=== PATIENT | male | born 1960 | race Caucasian/White ===

== ENCOUNTER → 2024-11-15 | Outpatient (CLI) | payer BC, SELFPAY ==
--- NOTE | 2024-11-15 10:37 | RAD_ITS ---
PROCEDURE: WRIST MIN 3 VIEWS REASON FOR EXAM: Pain. TECHNIQUE: Three-view right wrist and three-view left wrist series (combined dictation). COMPARISON: None. RAD/Wrist min 3 Views IMPRESSION: Right wrist: Extensive chondrocalcinosis is seen in ulnar and radial aspects of the right wr ist. Marked scapholunate widening is likely due to scapholunate ligament disruption. No significant ulnar variance is noted. Moderate degenerative changes are seen of the scaphoid trapezial trapezoid join t, with associated marked joint space narrowing. No fracture site is seen. Left wrist: 2 superficial metallic densities are seen overlying the left 1st metacarpal bon e Mild negative ulnar variance is noted. Mild degenerative changes are seen of t he wrist, most apparent at scaphoid trapezial trapezoid joint. Mild degenerative changes are also seen throughout the visualized 1st ray. Deformity of the proximal shaft of the 5th metacarpal is noted, likely due to r emote healed injury. No fracture site is seen. Reading Location: [id number]
--- NOTE | 2024-11-15 10:37 | RAD_ITS ---
PROCEDURE: WRIST MIN 3 VIEWS REASON FOR EXAM: Pain. TECHNIQUE: Three-view right wrist and three-view left wrist series (combined dictation). COMPARISON: None. RAD/Wrist min 3 Views IMPRESSION: Right wrist: Extensive chondrocalcinosis is seen in ulnar and radial aspects of the right wr ist. Marked scapholunate widening is likely due to scapholunate ligament disruption. No significant ulnar variance is noted. Moderate degenerative changes are seen of the scaphoid trapezial trapezoid join t, with associated marked joint space narrowing. No fracture site is seen. Left wrist: 2 superficial metallic densities are seen overlying the left 1st metacarpal bon e Mild negative ulnar variance is noted. Mild degenerative changes are seen of t he wrist, most apparent at scaphoid trapezial trapezoid joint. Mild degenerative changes are also seen throughout the visualized 1st ray. Deformity of the proximal shaft of the 5th metacarpal is noted, likely due to r emote healed injury. No fracture site is seen. Reading Location: [id number]
[2024-11-15 12:57] LABS: Absolute Lymphocyte Count 1.88 X10^3/uL (0.83-4.51); Absolute Neutrophil Count 4.2 X10^3/uL (2.0-7.7); Basophil# 0.02 X10^3/uL; Basophil% 0.3 % (0-1); Eosinophil# 0.03 X10^3/uL; Eosinophils% 0.5 % (0-5); Hemoglobin 14.7 g/dL (13.0-16.5); Lymphocyte # 1.88 X10^3/ul (0.83-4.51); Lymphocyte % 28.7 % (19-41); Mean Corp Hgb Conc 31.3 g/dL (32-36); Mean Corpuscular Hgb 29.1 pg (27.0-32.0); Mean Corpuscular Volume 92.9 fL (80-94); Mean Platelet Vol. 10.5 fl (6.2-12.0); Monocyte# 0.43 X10^3/uL; Monocyte% 6.6 % (0-10); NRBC Flagged by Analyzer 0 % (0-5); Neutrophil # 4.19 X10^3/uL (2.7-7.7); Neutrophil % 63.7 % (47-70); Platelet Count 234 K/mm3 (150-450); RBC Distribution Width CV 13.8 % (11.6-14.6); RBC Distribution Width SD 47.3 fl (35.1-43.9); Red Blood Count 5.06 M/mm3 (4.6-6.2); White Blood Count 6.6 K/mm3 (4.4-11.0)
[2024-11-15 13:45] LABS: ALB/GLOB Ratio 0.9 RATIO (0.9-2.4); AST(SGOT) 17 U/L (15-37); Alanine Aminotransfer ALT/SGPT 30 U/L (16-61); Albumin, Serum 3.4 g/dL (3.2-5.0); Alkaline Phosphatase 68 U/L (45-117); Anion Gap 8 (5-15); BUN 17 mg/dL (7-18); BUN/Creat Ratio 18.7 RATIO (10-20); CPK Total, Creatine Kinase 70 U/L (39-308); Calcium,Total 9.4 mg/dL (8.5-10.1); Chloride 104 mmol/L (98-107); Creatinine, Serum 0.91 mg/dL (0.70-1.30); EST Glomerular Filtration Rate 90 mL/min (>60); Est Glom Filt Rate - Afr Amer 109 mL/min (>60); Globulin 3.9 g/dL (2.2-4.2); Glucose 105 mg/dL (74-106); Protein, Total 7.3 g/dL (6.4-8.2); Rheumatoid Factor < 10.0 IU/mL (<15); Sodium Level 138 mmol/L (136-145)
[2024-11-15 14:01] LABS: Hepatitis B Surface Antibody Non-Reactive; Hepatitis B Surface Antigen Non-Reactive (Nonreactive); Hepatitis C Antibody Non-Reactive (Nonreactive)
[2024-11-16 11:08] LABS: ANTINUCLEAR ANTIBODIES DIRECT Negative (Negative)
[2024-11-16 13:07] LABS: CCP IgG Antibodies 2 units (0-19)
== END | disposition home or self-care (01) ==
LOC: MTLAB 10:35
PROVIDERS: PCP Nurse Practitioner Primary Care; Referring Provider Internal Medicine Rheumatology; Visit Provider Internal Medicine Rheumatology
DX: M06.4 Inflammatory polyarthropathy (principal); M17.0 Bilateral primary osteoarthritis of knee; M25.531 Pain in right wrist; M25.532 Pain in left wrist
CPT/HCPCS: 36415; 73110; 80053; 82085; 82550; 85025; 86038; 86200; 86431; 86706; 86803; 87340

== ENCOUNTER → 2024-12-18 | Outpatient (CLI) | payer BC, SELFPAY ==
--- NOTE | 2024-12-18 19:08 | MRI_ITS ---
PROCEDURE: MRI cervical spine without IV contrast REASON FOR EXAM: PAIN TECHNIQUE: Cervical spine MRI without intravenous gadolinium-based contrast. COMPARISON: None. FINDINGS: Vertebral body heights are within normal limits. Negative for fracture or marrow replacement. Mild cervical kyphosis. Spinal cord is of normal caliber, contour and signal intensity. No paraspinal mass. C2-3: No focal disc abnormality, spinal stenosis or foraminal narrowing. C3-4: Posterior disc osteophyte complex. Bilateral uncovertebral arthrosis, greater on the left. No significant spinal stenosis. Moderate/severe left and mild right foraminal narrowing. C4-5: Posterior disc osteophyte complex abutting the ventral cord. Bilateral uncovertebral arthrosis. Mild spinal stenosis. Mgde-[id number] bilateral foraminal narrowing, greater on the left. C5-6: Posterior disc osteophyte complex. Bilateral uncovertebral arthrosis. Mild spinal stenosis. Moderate/severe left foraminal narrowing. C6-7: Posterior disc osteophyte complex. Bilateral uncovertebral arthrosis. No significant spinal stenosis or foraminal narrowing. C7-T1: No focal disc abnormality, spinal stenosis or foraminal narrowing. MRI/Spine Cervical (Routine) IMPRESSION: 1. Acquired mild spinal stenosis at C4-5 and C5-6. 2. Varying degrees of multilevel foraminal narrowing, greatest on the left at C 3-4 and C5-6. Reading Location: [facility]
== END | disposition home or self-care (01) ==
PROVIDERS: PCP Nurse Practitioner Primary Care; Referring Provider Student in an Organized Health Care Education/Training Program; Visit Provider Student in an Organized Health Care Education/Training Program
DX: M54.2 Cervicalgia (principal)
CPT/HCPCS: 72141

== ENCOUNTER → 2025-01-17 | Outpatient (CLI) | payer BC, SELFPAY ==
[2025-01-17 12:53] LABS: Absolute Lymphocyte Count 1.99 X10^3/uL (0.83-4.51); Absolute Neutrophil Count 5.8 X10^3/uL (2.0-7.7); Basophil# 0.02 X10^3/uL; Basophil% 0.2 % (0-1); Eosinophil# 0.04 X10^3/uL; Eosinophils% 0.5 % (0-5); Hematocrit 45.3 % (40-54); Hemoglobin 14.7 g/dL (13.0-16.5); Lymphocyte # 1.99 X10^3/ul (0.83-4.51); Lymphocyte % 23.3 % (19-41); Mean Corp Hgb Conc 32.5 g/dL (32-36); Mean Corpuscular Hgb 29.7 pg (27.0-32.0); Mean Corpuscular Volume 91.5 fL (80-94); Mean Platelet Vol. 9.7 fl (6.2-12.0); Monocyte# 0.65 X10^3/uL; Monocyte% 7.6 % (0-10); NRBC Flagged by Analyzer 0 % (0-5); Neutrophil # 5.82 X10^3/uL (2.7-7.7); Platelet Count 259 K/mm3 (150-450); RBC Distribution Width CV 13.8 % (11.6-14.6); RBC Distribution Width SD 46.5 fl (35.1-43.9); Red Blood Count 4.95 M/mm3 (4.6-6.2); White Blood Count 8.6 K/mm3 (4.4-11.0)
[2025-01-17 13:25] LABS: ALB/GLOB Ratio 1.2 RATIO (0.9-2.4); AST(SGOT) 17 U/L (<=37); Alanine Aminotransfer ALT/SGPT 19 U/L (<=46); Albumin, Serum 3.9 g/dL (3.4-4.8); Alkaline Phosphatase 65 U/L (40-129); Anion Gap 12 (5-15); BUN 17 mg/dL (4-19); BUN/Creat Ratio 18.2 RATIO (10-20); Calcium,Total 9.7 mg/dL (7.6-11.0); Carbon Dioxide 25.2 mmol/L (21.0-32.0); Chloride 102 mmol/L (98-108); Creatinine, Serum 0.94 mg/dL (0.70-1.20); EST Glomerular Filtration Rate 92 (>60); Globulin 3.3 g/dL (2.2-4.2); Glucose 114 mg/dL (70-99); Protein, Total 7.2 g/dL (5.9-8.4); Sodium Level 139 mmol/L (133-145); Total Bilirubin 0.33 mg/dL (0.00-1.30)
== END | disposition home or self-care (01) ==
LOC: MTLAB 10:23
PROVIDERS: PCP Nurse Practitioner Primary Care; Referring Provider Internal Medicine Rheumatology; Visit Provider Internal Medicine Rheumatology
DX: M06.4 Inflammatory polyarthropathy (principal); Z79.899 Other long term (current) drug therapy
CPT/HCPCS: 36415; 80053; 85025

== ENCOUNTER → 2025-03-21 | Outpatient (CLI) | payer BC, SELFPAY ==
[2025-03-21 10:47] LABS: Absolute Lymphocyte Count 1.51 X10^3/uL (0.83-4.51); Absolute Neutrophil Count 3.6 X10^3/uL (2.0-7.7); Basophil# 0.03 X10^3/uL; Basophil% 0.5 % (0-1); Eosinophil# 0.03 X10^3/uL; Eosinophils% 0.5 % (0-5); Hematocrit 44.2 % (40-54); Hemoglobin 14.4 g/dL (13.0-16.5); Lymphocyte # 1.51 X10^3/ul (0.83-4.51); Lymphocyte % 26.6 % (19-41); Mean Corp Hgb Conc 32.6 g/dL (32-36); Mean Corpuscular Hgb 30.3 pg (27.0-32.0); Mean Corpuscular Volume 92.9 fL (80-94); Mean Platelet Vol. 9.8 fl (6.2-12.0); Monocyte# 0.47 X10^3/uL; Monocyte% 8.3 % (0-10); NRBC Flagged by Analyzer 0 % (0-5); Neutrophil # 3.61 X10^3/uL (2.7-7.7); Neutrophil % 63.7 % (47-70); Platelet Count 256 K/mm3 (150-450); RBC Distribution Width CV 15.1 % (11.6-14.6); RBC Distribution Width SD 51.5 fl (35.1-43.9); Red Blood Count 4.76 M/mm3 (4.6-6.2); White Blood Count 5.7 K/mm3 (4.4-11.0)
[2025-03-21 11:16] LABS: ALB/GLOB Ratio 1.3 RATIO (0.9-2.4); AST(SGOT) 24 U/L (<=37); Alanine Aminotransfer ALT/SGPT 36 U/L (<=46); Albumin, Serum 4.1 g/dL (3.4-4.8); Alkaline Phosphatase 61 U/L (40-129); Anion Gap 12 (5-15); BUN 20 mg/dL (4-19); BUN/Creat Ratio 20.9 RATIO (10-20); Calcium,Total 9.5 mg/dL (7.6-11.0); Carbon Dioxide 25.5 mmol/L (21.0-32.0); Chloride 102 mmol/L (98-108); Creatinine, Serum 0.94 mg/dL (0.70-1.20); EST Glomerular Filtration Rate 92 (>60); Globulin 3.2 g/dL (2.2-4.2); Glucose 111 mg/dL (70-99); Potassium 3.8 mmol/L (3.3-5.1); Protein, Total 7.3 g/dL (5.9-8.4); Sodium Level 139 mmol/L (133-145); Total Bilirubin 0.61 mg/dL (0.00-1.30)
[2025-03-21 11:27] LABS: Cholesterol 219 mg/dL (<=200); High Density Lipoprotein 73 mg/dL; Low Density Lipoprotein Calc. 137 mg/dL; PSA,Total - Annual Screen 3.48 ng/mL (0.02-4.00); Triglycerides 46 mg/dL; Very Low Density Lipoprotein 9 mg/dL (5-40)
== END | disposition home or self-care (01) ==
LOC: MTLAB 08:13
PROVIDERS: Internal Medicine Rheumatology; PCP Nurse Practitioner Primary Care; Referring Provider Nurse Practitioner Primary Care; Visit Provider Nurse Practitioner Primary Care
DX: Z00.00 Encounter for general adult medical examination without abnormal findings (principal); M06.4 Inflammatory polyarthropathy; M17.0 Bilateral primary osteoarthritis of knee; Z79.899 Other long term (current) drug therapy
CPT/HCPCS: 36415; 80053; 80061; 84153; 85025; G0103

== ENCOUNTER 2025-06-20 12:00 | Outpatient (RCR) | payer BC, SELFPAY ==
--- NOTE | 2025-04-13 10:47 | HP.PTEVAL_ITS ---
Patient's Visit Information Visit Information Visit Information: SHANE MIR is a 64 year old M referred to Physical Therapy by NICOLAS Trevino with a diagnosis of PD. Date of Evaluation: 04/13/25 Physical Therapist: AUDRA Olson Visit Plan Frequency: 2x /Week Duration: 3 Months Plan: +++Use gait belt at all times+++ He tends to not advance his L LE and will trip. Also he reports that he had a Quad tendon injury on the L 10 years ago and was told not to strengthen his L leg. Pt is going to call his surgeon and see if he is allowed to now as he is very weak. 2X/ week for 8-12 weeks for gait training, balance, functional body weight strength (strength at // bars in standing (hip flex, hip ext etc until cleared to strengthen), sit to stands mechanics, dual tasking, stepping over objects in safe manner, Trunk stretching, picking up objects from the floor (might want to start with objects on higher step and progress) with HEP HEP: walk with heel to toe gait pattern Subjective Subjective: Pt just found out that he has PD about 3 weeks ago. He drags his L foot. He tore his L patellar tendon a few years ago and they did not want him to rehab it. He had a cast on for [address] never said anything about rehab. He has trouble lifting his L leg in and out of the car. He sleeps in a lazy boy for 12 years now. He had trouble getting up and down 10 times in a row. He is having trouble with balance. He has been using the cane for several months. He occ he falls and stumbles. He was able to get up if he can pull himself up. 3 steps into home and holds onto a banister. He thinks that his PD sx started about 1-1.5 years ago. He can not make his L foot do what he wants it to do. He is on PD meds but he has not noticed a difference. Objective Objective: Gait: Walks wtih decrease heel to toe, decrease hip ext and knee flexion and has a hard time initiating hip flexion with gait with a straight cane. Pt does catch his L foot often with gait with straight cane. Pt has major R hindfoot instability Sit to stand: needs heavy assistance of B arms to get out of the chair. He does not lean FW to shift weight well. LE MMT: R hip flex 19.6 and L 16.4 R knee ext 35.9 and L 28.9 R knee flex 17.2 and L 14.3 R DF 21.4 and L 24.4 FGA: 6 Seated opp arm and leg.. X 10 each side (weak core muscles) Pt struggles to lift B legs onto the mat table and needs to use his UE to help Pt struggles with hip flexion motion on the L Balance/Special Test Scores Functional Gait Assessment Score: 6 % Disability: 80.0000 Lower Extremity Functional Score: 31 Goals Goal 1:: I HEP Goal Time Frame: 8-12 Weeks Goal 2:: Increase balance (FGA score was 6 at eval) Goal Time Frame: 8-12 Weeks Goal 3:: Be able to walk 1/2 lap around dept with cane without tripping on L foot Goal Time Frame: 8-12 Weeks Goal 4:: Pt to report being able to get his legs into car with 50% more ease Goal Time Frame: 8-12 Weeks Rehabilitation Potential Rehabilitation Potential: Good Anticipated Interventions Patient/Client Instruction: Educate patient on: Condition and Plan of Care For the Purpose of:: To improve nutrient delivery to tissue, To improve muscle performance and motor function, To improve ability to perform ADL's, To increase tolerance to activity/condition/position, To improve performance and independence with ADL's, To improve ability of physical actions for home/community/work/leisure, To improve gait and locomotor functions, To improve health of tissue, To improve endurance, To improve balance and To improve safety with gait Therapeutic Exercise to Include: Strength training, Endurance training, Balance training, Postural training, Flexibilty training, Gait and locomotor training, Neuromotor development, Active ROM and Dynamic Lumbar Stabilization For the Purpose of:: To improve muscle performance and motor function, To improve ability to perform ADL's, To increase tolerance to activity/condition/position, To improve performance and independence with ADL's, To decrease level of supervision to perform tasks, To improve ability of physical actions for home/community/work/leisure, To improve gait and locomotor functions, To improve health of tissue, To decrease soft tissue restriction, To improve endurance, To improve balance, To improve safety with gait and To assume or resume ADL's Functional Training to Include: Gait training For the Purpose of:: To improve gait and locomotor functions and To improve safety with gait Text: Thank you for the opportunity to evaluate your patient. For Medicare and Medicare HMO plans, please review the plan of care and approve it. It will need to be FAXED BACK to us at [phone] for Medicare purposes. For Medicare only, by signing this I certify the plan of care. Please let me know if there are questions or concerns regarding this plan of care. Physician Signature: Date:
--- NOTE | 2025-05-15 12:57 | HP.PTREVAL ---
Re-Evaluation Intro: NICOLAS Trevino, It has been my pleasure to treat SHANE MIR over the last 9 visits for PD. Please see the progress note below for an update on the physical therapy plan of care! Subjective Subjective: Pt has been on machines the last 2 times and he felt like he did something. He says that he does trip on L foot a few times a day. He has fallen twice in the last month because of tripping on the foot. He has been sitting down in the highlander and swinging in and that has helped some. Objective Objective/Function: R hip flex 22.6 and L 18.5 R knee ext 42 and L 31.1 R knee flex 19.8 and L 18.3 R DF 21.4 and L 24.4 Gait: walks dragging his L LE and scuffing his L foot with occ tripping on his L foot. Tied foot into DF Plan Plan Plan: Pt has 4 more visits available as of now Pt to let us know if he wants a H&W routine, PD class etc. and to give him and exercise program geared toward that. Surgeon reported to pt ok to strengthen L Quad but low weights and more reps and build up. 2X/ week for 8-12 weeks for gait training, balance, functional body weight strength (strength at // bars in standing (hip flex, hip ext etc until cleared to strengthen), sit to stands mechanics, dual tasking, stepping over objects in safe manner, Trunk stretching, picking up objects from the floor (might want to start with objects on higher step and progress) with HEP HEP: walk with heel to toe gait pattern Balance/Gait/Functional tests Balance/Special Test Scores Functional Gait Assessment Score: 6 % Disability: 80.0000 Lower Extremity Functional Score: 28 Goals Goals Goal 1:: I HEP Goal Time Frame: 8-12 Weeks Goal 2:: Increase balance (FGA score was 6 at eval) Goal Time Frame: 8-12 Weeks Goal 3:: Be able to walk 1/2 lap around dept with cane without tripping on L foot Goal Time Frame: 8-12 Weeks Goal 4:: Pt to report being able to get his legs into car with 50% more ease Goal Time Frame: 8-12 Weeks Anticipated Interventions Anticipated Interventions Patient/Client Instruction: Educate patient on: Condition and Plan of Care For the Purpose of:: To improve nutrient delivery to tissue, To improve muscle performance and motor function, To improve ability to perform ADL's, To increase tolerance to activity/condition/position, To improve performance and independence with ADL's, To improve ability of physical actions for home/community/work/leisure, To improve gait and locomotor functions, To improve health of tissue, To improve endurance, To improve balance and To improve safety with gait Therapeutic Exercise to Include: Strength training, Endurance training, Balance training, Postural training, Flexibilty training, Gait and locomotor training, Neuromotor development, Active ROM and Dynamic Lumbar Stabilization For the Purpose of:: To improve muscle performance and motor function, To improve ability to perform ADL's, To increase tolerance to activity/condition/position, To improve performance and independence with ADL's, To decrease level of supervision to perform tasks, To improve ability of physical actions for home/community/work/leisure, To improve gait and locomotor functions, To improve health of tissue, To decrease soft tissue restriction, To improve endurance, To improve balance, To improve safety with gait and To assume or resume ADL's Functional Training to Include: Gait training For the Purpose of:: To improve gait and locomotor functions and To improve safety with gait Re-Evaluation Ending Re-evaluation ending: Please do not hesitate to contact me at [phone] by phone or if you have questions or concerns regarding this new plan of care! Sincerely, AUDRA Olson
--- NOTE | 2025-08-08 13:36 | HP.PTDCNRP_ITS ---
Patient Information Patient Information: SHANE MIR was seen in my office for initial evaluation on 04/13/25. The following Plan of Care was established for this patient: POC Established Initial Frequency: 2x /Week Initial Duration: 3 Months Anticipated Interventions Patient/Client Instruction: Educate patient on: Condition and Plan of Care For the Purpose of:: To improve nutrient delivery to tissue, To improve muscle performance and motor function, To improve ability to perform ADL's, To increase tolerance to activity/condition/position, To improve performance and independence with ADL's, To improve ability of physical actions for home/community/work/leisure, To improve gait and locomotor functions, To improve health of tissue, To improve endurance, To improve balance and To improve safety with gait Therapeutic Exercise to Include: Strength training, Endurance training, Balance training, Postural training, Flexibilty training, Gait and locomotor training, Neuromotor development, Active ROM and Dynamic Lumbar Stabilization For the Purpose of:: To improve muscle performance and motor function, To impr ove ability to perform ADL's, To increase tolerance to activity/condition/position, To improve performance and independence with ADL's, To decrease level of supervision to perform tasks, To improve ability of physical actions for home/community/work/leisure, To improve gait and locomotor functions, To improve health of tissue, To decrease soft tissue restriction, To improve endurance, To improve balance, To improve safety with gait and To assume or resume ADL's Functional Training to Include: Gait training For the Purpose of:: To improve gait and locomotor functions and To improve safety with gait Last Seen Last Seen: This patient was last seen in our office 06/20/25. Pertinent comments regarding their Physical therapy will appear below: LC PT At this point I will be discontinuing this patient from physical therapy. I would be happy to see this patient again in the future if found appropriate by the physician. Thank you! Jaylene Parker, AUDRA Balance/Gait/Functional tests Balance/Special Test Scores Functional Gait Assessment Score: 6 % Disability: 80.0000 Lower Extremity Functional Score: 31
== END 2025-06-20 19:00 | disposition home or self-care (01) ==
LOC: PT 12:00
PROVIDERS: PCP Nurse Practitioner Primary Care; Referring Provider Physician Assistant; Visit Provider Physician Assistant
DX: G20.C Parkinsonism, unspecified (principal)
CPT/HCPCS: 97110; 97116; 97162; 97530

== ENCOUNTER → 2025-06-28 | Outpatient (CLI) | payer BC, SELFPAY ==
[2025-06-28 12:26] LABS: Hematocrit 42.5 % (40-54); Hemoglobin 14.0 g/dL (13.0-16.5); Immature Granulocytes Count 0.030 X10^3/uL (0.0-0.0); Mean Corp Hgb Conc 32.9 g/dL (32-36); Mean Corpuscular Volume 95.7 fL (80-94); Mean Platelet Vol. 10.0 fl (6.2-12.0); NRBC Flagged by Analyzer 0 % (0-5); Platelet Count 220 K/mm3 (150-450); RBC Distribution Width CV 12.9 % (11.6-14.6); RBC Distribution Width SD 45.6 fl (35.1-43.9); Red Blood Count 4.44 M/mm3 (4.6-6.2); White Blood Count 6.9 K/mm3 (4.4-11.0)
[2025-06-28 12:52] LABS: AST(SGOT) 21 U/L (<=37); Alanine Aminotransfer ALT/SGPT 8 U/L (<=46); Albumin, Serum 3.5 g/dL (3.4-4.8); Alkaline Phosphatase 54 U/L (40-129); Anion Gap 13 (5-15); BUN 21 mg/dL (4-19); BUN/Creat Ratio 20.5 RATIO (10-20); Calcium,Total 9.1 mg/dL (7.6-11.0); Carbon Dioxide 23.4 mmol/L (21.0-32.0); Chloride 102 mmol/L (98-108); Globulin 3.5 g/dL (2.2-4.2); Glucose 113 mg/dL (70-99); Potassium 3.7 mmol/L (3.3-5.1)
== END | disposition home or self-care (01) ==
LOC: MTLAB 10:50
PROVIDERS: PCP Nurse Practitioner Primary Care; Referring Provider Internal Medicine Rheumatology; Visit Provider Internal Medicine Rheumatology
DX: M06.4 Inflammatory polyarthropathy (principal); M17.0 Bilateral primary osteoarthritis of knee; Z79.899 Other long term (current) drug therapy
CPT/HCPCS: 36415; 80053; 85025

== ENCOUNTER → 2025-09-18 | Outpatient (CLI) | payer BC, SELFPAY ==
[2025-09-18 15:18] LABS: Hematocrit 44.4 % (40-54); Hemoglobin 14.2 g/dL (13.0-16.5); Immature Granulocytes Count 0.020 X10^3/uL (0.0-0.0); Mean Corp Hgb Conc 32.0 g/dL (32-36); Mean Corpuscular Volume 95.9 fL (80-94); Mean Platelet Vol. 10.2 fl (6.2-12.0); NRBC Flagged by Analyzer 0 % (0-5); Platelet Count 249 K/mm3 (150-450); RBC Distribution Width CV 14.5 % (11.6-14.6); RBC Distribution Width SD 50.7 fl (35.1-43.9); Red Blood Count 4.63 M/mm3 (4.6-6.2); White Blood Count 7.3 K/mm3 (4.4-11.0)
[2025-09-18 15:48] LABS: AST(SGOT) 20 U/L (<=37); Alanine Aminotransfer ALT/SGPT 27 U/L (<=46); Albumin, Serum 4.2 g/dL (3.4-4.8); Alkaline Phosphatase 56 U/L (40-129); Anion Gap 12 (5-15); BUN 20 mg/dL (4-19); BUN/Creat Ratio 23.2 RATIO (10-20); Calcium,Total 9.9 mg/dL (7.6-11.0); Carbon Dioxide 25.0 mmol/L (21.0-32.0); Chloride 101 mmol/L (98-108); Globulin 2.9 g/dL (2.2-4.2); Glucose 91 mg/dL (70-99); Potassium 3.6 mmol/L (3.3-5.1)
== END | disposition home or self-care (01) ==
LOC: MTLAB 12:42
PROVIDERS: PCP Nurse Practitioner Primary Care; Referring Provider Internal Medicine Rheumatology; Visit Provider Internal Medicine Rheumatology
DX: M06.4 Inflammatory polyarthropathy (principal); Z79.899 Other long term (current) drug therapy
CPT/HCPCS: 36415; 80053; 85025